=== PATIENT | female | born 1955 | race African-American/Black ===

== ENCOUNTER 2017-10-29 09:34 | Emergency (ER) | payer OTHER, MEDICAID ==
[~2017-10-29] VITALS: Ht 162.6 cm; Wt 100.0 kg
[~2017-10-29 09:34] MED LIST: ALBU4TAB6 PO; CARI350T27 PO; DIPH25CA83 PO; FAMO20TA8 PO; QUET25TA34 PO; TRIA1CAP6 PO; VERA240C2 PO; [UNRECOGNIZED DRUG - CODE] PO
[2017-10-29] MEDS ORDERED: KETOROLAC 60MG/2ML VIAL IM ONE (10:30)
[2017-10-29 10:40] VITALS: BP 195/91
== END 2017-10-29 10:47 | disposition home or self-care (01) ==
LOC: ER 09:34
DX: M25.561 Pain in right knee (principal); M79.603 Pain in arm, unspecified; I10 Essential (primary) hypertension; J45.909 Unspecified asthma, uncomplicated; Z87.891 Personal history of nicotine dependence; Z96.659 Presence of unspecified artificial knee joint
CPT/HCPCS: 96372; 99283; J1885

== ENCOUNTER 2017-12-22 10:15 | Emergency (ER) | payer OTHER, MEDICAID ==
[~2017-12-22] VITALS: Ht 162.6 cm; Wt 100.0 kg
[2017-12-22 16:00] VITALS: BP 141/75
[2017-12-22] MEDS ORDERED: KETOROLAC 60MG/2ML VIAL IM ONE (16:00)
== END 2017-12-22 16:24 | disposition home or self-care (01) ==
LOC: ER 10:21
DX: M54.30 Sciatica, unspecified side (principal); M54.9 Dorsalgia, unspecified; I10 Essential (primary) hypertension; J45.909 Unspecified asthma, uncomplicated; Z87.891 Personal history of nicotine dependence; Z96.659 Presence of unspecified artificial knee joint
CPT/HCPCS: 96372; 99283; J1885

== ENCOUNTER 2018-05-20 08:01 | Emergency (ER) | payer OTHER, MEDICAID ==
[~2018-05-20] VITALS: Ht 162.6 cm; Wt 101.0 kg
[2018-05-20] MEDS ORDERED: PREDNISONE 20MG TABLET PO STA (10:43)
[2018-05-20] MEDS ORDERED: ALBUTEROL (0.083%) 2.5MG/3ML NEB HHN STA (10:43)
[2018-05-20] MEDS ORDERED: IPRATROPIUM BROMIDE (0.02%) 0.5MG/2.5ML NEB HHN STA (10:43)
[2018-05-20 12:24] VITALS: BP 154/67
== END 2018-05-20 13:25 | disposition home or self-care (01) ==
LOC: ER 08:01
DX: S40.862A Insect bite (nonvenomous) of left upper arm, initial encounter (principal); J45.901 Unspecified asthma with (acute) exacerbation; I10 Essential (primary) hypertension; Z87.891 Personal history of nicotine dependence; W57.XXXA Bitten or stung by nonvenomous insect and other nonvenomous arthropods, initial encounter; Y93.89 Activity, other specified; Y92.89 Other specified places as the place of occurrence of the external cause; Y99.8 Other external cause status
CPT/HCPCS: 71045; 94640; 99283; J7512; J7611

== ENCOUNTER 2019-03-22 12:51 | Emergency (ER) | payer OTHER, MEDICAID ==
[~2019-03-22] VITALS: Ht 162.6 cm; Wt 97.0 kg
[~2019-03-22 12:51] MED LIST changes: +ALBU18HF2 IH; -ALBU4TAB6 PO; -CARI350T27 PO; +CYCL5TAB *; -DIPH25CA83 PO; +DIPH50CA38 *; +OMEP20CA10 PO; -QUET25TA34 PO; +SITA1TAB6 PO; +VERA180T8 PO; -VERA240C2 PO; -[UNRECOGNIZED DRUG - CODE] PO
[2019-03-22] MEDS ORDERED: KETOROLAC 60MG/2ML VIAL IM ONE (16:15)
[2019-03-22 17:02] VITALS: BP 154/79
== END 2019-03-22 17:05 | disposition home or self-care (01) ==
LOC: ER 14:45
DX: S39.012A Strain of muscle, fascia and tendon of lower back, initial encounter (principal); J45.909 Unspecified asthma, uncomplicated; E11.9 Type 2 diabetes mellitus without complications; I10 Essential (primary) hypertension; X50.0XXA Overexertion from strenuous movement or load, initial encounter; Y93.89 Activity, other specified; Y92.89 Other specified places as the place of occurrence of the external cause; Y99.8 Other external cause status; Z96.659 Presence of unspecified artificial knee joint; Z79.899 Other long term (current) drug therapy; Z98.890 Other specified postprocedural states
CPT/HCPCS: 96372; 99283; J1885

== ENCOUNTER 2019-04-17 09:54 | Emergency (ER) | payer OTHER, MEDICAID ==
[~2019-04-17] VITALS: Ht 162.6 cm; Wt 92.0 kg
[2019-04-17] MEDS ORDERED: ALBUTEROL (0.083%) 2.5MG/3ML NEB HHN STA (10:19)
[2019-04-17] MEDS ORDERED: IPRATROPIUM BROMIDE (0.02%) 0.5MG/2.5ML NEB HHN STA (10:19)
[2019-04-17 10:26] LABS: BASOPHILS % 1.1 % (0.0-2.0); EOSINOPHILS % 0.3 % (0.0-5.0); HEMATOCRIT. 33.6 % (36.0-48.0); HEMOGLOBIN. 10.8 g/dL (12.0-16.0); LYMPHOCYTES % 16.5 % (20.0-50.0); MEAN CORPUSCULAR HEMOGLOBIN 25.9 pg (28.0-32.0); MEAN CORPUSCULAR VOLUME 80.7 fL (81.0-99.0); MEAN PLATELET VOLUME 7.9 fl (7.4-10.4); MONOCYTES % 5.1 % (2.0-8.0); PLATELET 311 x1000/uL (130-400); RED BLOOD CELL COUNT 4.17 mill/uL (4.2-5.4); RED CELL DISTRIBUTION WIDTH 15.5 % (11.6-14.6)
[2019-04-17 10:33] LABS: CHLORIDE 110 mEq/L (98-107)
[2019-04-17 10:36] LABS: PARTIAL THROMBOPLASTIN TIME 32.2 sec (23.4-31.0); PROTHROMBIN TIME 10.3 sec (9.6-11.0)
[2019-04-17 14:15] VITALS: BP 162/68
== END 2019-04-17 14:15 | disposition home or self-care (01) ==
LOC: ER 10:27
DX: J45.901 Unspecified asthma with (acute) exacerbation (principal); E11.9 Type 2 diabetes mellitus without complications; I10 Essential (primary) hypertension; Z96.651 Presence of right artificial knee joint; Z79.899 Other long term (current) drug therapy; Z98.890 Other specified postprocedural states
CPT/HCPCS: 36415; 71045; 80053; 83880; 84484; 85025; 85610; 85730; 93005; 94640; 99284; J7611

== ENCOUNTER 2019-04-19 12:04 | Emergency (ER) | payer OTHER, MEDICAID ==
[~2019-04-19] VITALS: Ht 162.6 cm; Wt 95.0 kg
[2019-04-19] MEDS ORDERED: KETOROLAC 60MG/2ML VIAL IM ONE (15:15)
[2019-04-19 15:30] VITALS: BP 130/76
== END 2019-04-19 15:40 | disposition home or self-care (01) ==
LOC: ER 12:04
DX: M54.9 Dorsalgia, unspecified (principal); M79.18 Myalgia, other site; J45.909 Unspecified asthma, uncomplicated; I10 Essential (primary) hypertension
CPT/HCPCS: 96372; 99283; J1885

== ENCOUNTER 2019-09-16 10:52 | Emergency (ER) | payer OTHER, MEDICAID ==
[~2019-09-16] VITALS: Ht 165.1 cm; Wt 99.0 kg
[~2019-09-16 10:52] MED LIST changes: -OMEP20CA10 PO; +OMEP20CA5 PO; +VERA180T12 PO; -VERA180T8 PO
[2019-09-16] MEDS ORDERED: IPRATROPIUM BROMIDE (0.02%) 0.5MG/2.5ML NEB HHN STA (11:26)
[2019-09-16] MEDS ORDERED: PREDNISONE 20MG TABLET PO STA (11:26)
[2019-09-16] MEDS ORDERED: ALBUTEROL (0.083%) 2.5MG/3ML NEB HHN STA (11:26)
[2019-09-16 13:16] VITALS: BP 164/78
== END 2019-09-16 13:17 | disposition home or self-care (01) ==
LOC: ER 10:52
DX: J45.901 Unspecified asthma with (acute) exacerbation (principal); I10 Essential (primary) hypertension; E11.9 Type 2 diabetes mellitus without complications
CPT/HCPCS: 71045; 94644; 99285; J7512; J7611

== ENCOUNTER 2019-10-11 07:17 | Emergency (ER) | payer OTHER, MEDICAID ==
[~2019-10-11] VITALS: Ht 162.6 cm; Wt 99.0 kg
[2019-10-11 08:23] VITALS: BP 125/81
== END 2019-10-11 08:24 | disposition home or self-care (01) ==
LOC: ER 08:06
DX: M75.21 Bicipital tendinitis, right shoulder (principal); I10 Essential (primary) hypertension; E11.9 Type 2 diabetes mellitus without complications; J45.909 Unspecified asthma, uncomplicated; Z98.890 Other specified postprocedural states; Z79.899 Other long term (current) drug therapy
CPT/HCPCS: 99282

== ENCOUNTER 2019-12-28 08:34 | Emergency (ER) | payer MEDICAID, MEDICARE, OTHER ==
[~2019-12-28] VITALS: Ht 162.6 cm; Wt 97.0 kg
[~2019-12-28 08:34] MED LIST changes: +OMEP20CA14 PO; -OMEP20CA5 PO
[2019-12-28 08:50] VITALS: BP 101/62
[2019-12-28] MEDS ORDERED: ALBUTEROL (0.083%) 2.5MG/3ML NEB HHN STA (09:19)
[2019-12-28] MEDS ORDERED: PREDNISONE 20MG TABLET PO STA (09:19)
[2019-12-28] MEDS ORDERED: IPRATROPIUM BROMIDE (0.02%) 0.5MG/2.5ML NEB HHN STA (09:19)
== END 2019-12-28 10:52 | disposition home or self-care (01) ==
LOC: ER 08:34
DX: J45.901 Unspecified asthma with (acute) exacerbation (principal); E11.9 Type 2 diabetes mellitus without complications
CPT/HCPCS: 71045; 94640; 99283; J7512; J7611

== ENCOUNTER 2020-04-02 10:39 | Emergency (ER) | payer OTHER, MEDICAID ==
[~2020-04-02] VITALS: Ht 162.6 cm; Wt 95.0 kg
[2020-04-02] MEDS ORDERED: PREDNISONE 20MG TABLET PO ONE (11:15)
[2020-04-02] MEDS ORDERED: ALBUTEROL (0.083%) 2.5MG/3ML NEB HHN ONE (11:15)
[2020-04-02 11:51] VITALS: BP 168/74
== END 2020-04-02 11:51 | disposition home or self-care (01) ==
LOC: ER 11:13
DX: M25.521 Pain in right elbow (principal); J45.909 Unspecified asthma, uncomplicated; E11.9 Type 2 diabetes mellitus without complications; I10 Essential (primary) hypertension
CPT/HCPCS: 94640; 99283; J7512

== ENCOUNTER 2020-06-02 07:39 | Emergency (ER) | payer OTHER, MEDICAID ==
[~2020-06-02] VITALS: Ht 162.6 cm; Wt 100.0 kg
[2020-06-02 07:51] VITALS: BP 151/67
[2020-06-02] MEDS ORDERED: ALBUTEROL (0.083%) 2.5MG/3ML NEB HHN STA (08:00)
[2020-06-02] MEDS ORDERED: IPRATROPIUM BROMIDE (0.02%) 0.5MG/2.5ML NEB HHN STA (08:00)
[2020-06-02] MEDS ORDERED: PREDNISONE 20MG TABLET PO STA (08:00)
== END 2020-06-02 09:29 | disposition home or self-care (01) ==
LOC: ER 07:39
DX: J45.901 Unspecified asthma with (acute) exacerbation (principal); I10 Essential (primary) hypertension; E11.9 Type 2 diabetes mellitus without complications; J45.909 Unspecified asthma, uncomplicated
CPT/HCPCS: 94640; 99283; J7512

== ENCOUNTER 2021-02-03 14:31 | Emergency (ER) | payer OTHER, MEDICAID ==
[~2021-02-03] VITALS: Ht 162.6 cm; Wt 100.0 kg
[2021-02-03] MEDS ORDERED: ALBUTEROL (0.083%) 2.5MG/3ML NEB HHN STA (16:55)
[2021-02-03] MEDS ORDERED: IPRATROPIUM BROMIDE (0.02%) 0.5MG/2.5ML NEB HHN STA (16:55)
[2021-02-03] MEDS ORDERED: ALBU05 NEB (19:25)
[2021-02-03] MEDS ORDERED: P20 MT (19:28)
[2021-02-03 19:30] VITALS: BP 172/69
== END 2021-02-03 19:51 | disposition home or self-care (01) ==
LOC: ER 14:31
DX: J45.901 Unspecified asthma with (acute) exacerbation (principal); E11.9 Type 2 diabetes mellitus without complications; I10 Essential (primary) hypertension; Z98.890 Other specified postprocedural states; Z79.899 Other long term (current) drug therapy
CPT/HCPCS: 71045; 93005; 94640; 99283

== ENCOUNTER 2021-03-18 08:29 | Emergency (ER) | payer OTHER, MEDICAID ==
[~2021-03-18] VITALS: Ht 162.6 cm; Wt 102.0 kg
[~2021-03-18 08:29] MED LIST changes: +ALBU05 NEB; +P20 MT
[2021-03-18] MEDS ORDERED: METHYLPREDNISOLONE SOD SUCC 125 MG/2 ML VIAL IV STA (08:50)
[2021-03-18] MEDS ORDERED: IPRATROPIUM BROMIDE (0.02%) 0.5MG/2.5ML NEB HHN STA (08:50)
[2021-03-18] MEDS ORDERED: ALBUTEROL (0.083%) 2.5MG/3ML NEB HHN STA ×2 (08:50→11:07)
[2021-03-18 09:22] LABS: BASOPHILS % 0.8 % (0.0-2.0); EOSINOPHILS % 5.6 % (0.0-5.0); HEMATOCRIT. 34.2 % (36.0-48.0); HEMOGLOBIN. 10.8 g/dL (12.0-16.0); LYMPHOCYTES % 26.6 % (20.0-50.0); MEAN CORPUSCULAR HEMOGLOBIN 25.2 pg (28.0-32.0); MEAN CORPUSCULAR VOLUME 79.4 fL (81.0-99.0); MEAN PLATELET VOLUME 8.2 fl (7.4-10.4); MONOCYTES % 5.1 % (2.0-8.0); NEUTROPHILS % 61.9 % (40.0-76.0); PLATELET 293 x1000/uL (130-400); RED CELL DISTRIBUTION WIDTH 16.3 % (11.6-14.6)
[2021-03-18 09:29] LABS: CHLORIDE 107 mEq/L (98-107)
[2021-03-18] MEDS ORDERED: NITROGLYCERIN 0.4MG TABLET SL SL PRN (11:15)
[2021-03-18] MEDS ORDERED: ASPIRIN 81MG TABLET PO ONE (11:15)
[2021-03-18 13:09] VITALS: BP 148/79
[2021-03-18] MEDS ORDERED: P50 MT (13:10)
[2021-03-18] MEDS ORDERED: FLUT250D INH (13:14)
== END 2021-03-18 13:38 | disposition left against medical advice (07) ==
LOC: ER 08:36
DX: J45.901 Unspecified asthma with (acute) exacerbation (principal); R07.89 Other chest pain; E11.9 Type 2 diabetes mellitus without complications; I10 Essential (primary) hypertension; Z98.1 Arthrodesis status
CPT/HCPCS: 36415; 71045; 80053; 83880; 84484; 85025; 93005; 94640; 94644; 96374; 99285; J2930

== ENCOUNTER 2022-03-10 12:45 | Emergency (ER) | payer MEDICARE, MEDICAID ==
[~2022-03-10] VITALS: Ht 157.5 cm; Wt 77.0 kg
[~2022-03-10 12:45] MED LIST changes: +FLUT250D INH; +P50 MT; -VERA180T12 PO; +[UNRECOGNIZED DRUG - CODE] PO
[2022-03-10] MEDS ORDERED: IPRATROPIUM BROMIDE (0.02%) 0.5MG/2.5ML NEB HHN STA (13:16)
[2022-03-10] MEDS ORDERED: ALBUTEROL (0.083%) 2.5MG/3ML NEB HHN STA (13:16)
[2022-03-10] MEDS ORDERED: ASPIRIN 81MG TABLET PO ONE (14:00)
[2022-03-10 14:35] LABS: CHLORIDE 106 mEq/L (98-107)
[2022-03-10 14:56] LABS: BASOPHILS % 1.3 % (0.0-2.0); EOSINOPHILS % 1.5 % (0.0-5.0); HEMOGLOBIN. 11.2 g/dL (12.0-16.0); LYMPHOCYTES % 22.1 % (20.0-50.0); MEAN CORPUSCULAR HEMOGLOBIN 24.8 pg (28.0-32.0); MEAN CORPUSCULAR VOLUME 77.5 fL (81.0-99.0); MONOCYTES % 2.7 % (2.0-8.0); NEUTROPHILS % 72.4 % (40.0-76.0); PLATELET 361 x1000/uL (130-400); RED BLOOD CELL COUNT 4.52 mill/uL (4.2-5.4); RED CELL DISTRIBUTION WIDTH 17.7 % (11.6-14.6)
[2022-03-10 18:39] VITALS: BP 156/60
== END 2022-03-10 19:34 | disposition left against medical advice (07) ==
LOC: ER 13:04 → CANBEDREQ 20:19
DX: J45.901 Unspecified asthma with (acute) exacerbation (principal); R07.89 Other chest pain; M79.642 Pain in left hand; M79.641 Pain in right hand; E11.9 Type 2 diabetes mellitus without complications; I10 Essential (primary) hypertension; M19.90 Unspecified osteoarthritis, unspecified site
CPT/HCPCS: 36415; 71045; 80053; 83880; 84484; 85025; 93005; 94640; 99285

== ENCOUNTER 2022-06-27 10:02 | Emergency (ER) | payer MEDICARE, MEDICAID ==
[~2022-06-27] VITALS: Ht 162.6 cm; Wt 90.0 kg
[~2022-06-27 10:02] MED LIST changes: +VERA180T60 PO; -[UNRECOGNIZED DRUG - CODE] PO
[2022-06-27] MEDS ORDERED: PREDNISONE 20MG TABLET PO STA (10:20)
[2022-06-27] MEDS ORDERED: ALBUTEROL (0.083%) 2.5MG/3ML NEB HHN STA (10:20)
[2022-06-27] MEDS ORDERED: IPRATROPIUM BROMIDE (0.02%) 0.5MG/2.5ML NEB HHN STA (10:20)
[2022-06-27] MEDS ORDERED: ALBU05 NEB (11:19)
[2022-06-27] MEDS ORDERED: P20 MT (11:19)
[2022-06-27] MEDS ORDERED: BECL10.62 INH (11:19)
[2022-06-27] MEDS ORDERED: ALBU6.7H9 INH (11:19)
[2022-06-27 12:03] VITALS: BP 126/75
== END 2022-06-27 12:04 | disposition home or self-care (01) ==
LOC: ER 10:17
DX: J45.901 Unspecified asthma with (acute) exacerbation (principal); E11.9 Type 2 diabetes mellitus without complications; I10 Essential (primary) hypertension; Z79.899 Other long term (current) drug therapy; Z98.890 Other specified postprocedural states
CPT/HCPCS: 71045; 93005; 94644; 99285; J7512

== ENCOUNTER 2022-09-13 11:35 | Emergency (ER) | payer OTHER, MEDICAID ==
[~2022-09-13] VITALS: Ht 162.6 cm; Wt 91.0 kg
[~2022-09-13 11:35] MED LIST changes: +ALBU6.7H9 INH; +BECL10.62 INH
[2022-09-13] MEDS ORDERED: KETOROLAC 30MG/ML VIAL IM ONE (15:45)
[2022-09-13] MEDS ORDERED: CYCLOBENZAPRINE 10MG TABLET PO ONE (15:45)
[2022-09-13] MEDS ORDERED: LIDO700A30 TP (16:41)
[2022-09-13] MEDS ORDERED: NAPR-1176 MT (16:41)
[2022-09-13] MEDS ORDERED: HYDR-4001 MT (16:41)
[2022-09-13 16:58] LABS: CLARITY URINE CLEAR (CLEAR); COLOR URINE YELLOW (YELLOW); KETONES URINE NEGATIVE (NEGATIVE); LEUKOCYTE ESTERASE URINE 1+ (NEGATIVE); NITRITE URINE NEGATIVE (NEGATIVE); OCCULT BLOOD URINE NEGATIVE (NEGATIVE); PROTEIN URINE NEGATIVE (NEGATIVE); SPECIFIC GRAVITY URINE 1.021 (1.005-1.030); UROBILINOGEN URINE 0.2 E.U./dL (0.2-1.0)
[2022-09-13 17:13] VITALS: BP 139/97
[2022-09-14] MEDS ORDERED: CEPH500C2 MT (23:11)
== END 2022-09-13 17:14 | disposition home or self-care (01) ==
LOC: ER 11:35
DX: M54.50 Low back pain, unspecified (principal); E11.9 Type 2 diabetes mellitus without complications; I10 Essential (primary) hypertension; J45.909 Unspecified asthma, uncomplicated; Z96.659 Presence of unspecified artificial knee joint
CPT/HCPCS: 81003; 96372; 99283; J1885

== ENCOUNTER 2023-08-17 01:21 | Emergency (ER) | payer OTHER, MEDICAID ==
[~2023-08-17] VITALS: Ht 162.6 cm; Wt 92.0 kg
[~2023-08-17 01:21] MED LIST changes: +ALBU6.7H3 INH; -ALBU6.7H9 INH; +CEPH500C2 MT; +HYDR-4001 MT; +LIDO700A30 TP; +NAPR-1176 MT
[2023-08-17 01:57] VITALS: BP 184/71; PULSE 67; RESP 20; TEMP 98.2; O2SAT 97
[2023-08-17 03:13] LABS: CLARITY URINE CLOUDY (CLEAR); COLOR URINE YELLOW (YELLOW); GLUCOSE URINE NEGATIVE (NEGATIVE); KETONES URINE TRACE (NEGATIVE); LEUKOCYTE ESTERASE URINE 1+ (NEGATIVE); NITRITE URINE NEGATIVE (NEGATIVE); OCCULT BLOOD URINE NEGATIVE (NEGATIVE); PH URINE 5.5 (4.5-8.0); PROTEIN URINE NEGATIVE (NEGATIVE); SPECIFIC GRAVITY URINE 1.024 (1.005-1.030); UROBILINOGEN URINE 0.2 E.U./dL (0.2-1.0)
[2023-08-17 03:15] LABS: SQUAMOUS EPITHELIAL CELL URINE 3+ /lpf (RARE/1+); YEAST URINE NONE SEEN
[2023-08-17 03:34] LABS: BASOPHILS % 1.2 % (0.0-2.0); DIFFERENTIAL COMMENT 0; EOSINOPHILS % 4.3 % (0.0-5.0); HEMATOCRIT. 33.1 % (36.0-48.0); HEMOGLOBIN. 10.7 g/dL (12.0-16.0); LYMPHOCYTES % 36.1 % (20.0-50.0); MEAN CORPUSCULAR HEMOGLOBIN 25.7 pg (28.0-32.0); MEAN CORPUSCULAR HGB CONC 32.3 g/dL (31.0-37.0); MEAN CORPUSCULAR VOLUME 79.6 fL (81.0-99.0); MEAN PLATELET VOLUME 8.1 fl (7.4-10.4); MONOCYTES % 5.8 % (2.0-8.0); NEUTROPHILS % 52.6 % (40.0-76.0); PLATELET 335 x1000/uL (130-400); RED BLOOD CELL COUNT 4.15 mill/uL (4.2-5.4); RED CELL DISTRIBUTION WIDTH 15.7 % (11.6-14.6); WHITE BLOOD COUNT 8.8 x1000/uL (4.5-11.0)
[2023-08-17 03:45] LABS: CHLORIDE 107 mEq/L (98-107); INDEX HEMOLYSI 1 (1-3); INDEX ICTERIC 1 (1-4); INDEX LIPEMIC 1 (1-3); SODIUM 141 mEq/L (136-145)
[2023-08-17 03:52] LABS: ALANINE AMINOTRANSFERASE 22 IU/L (13-61); ALBUMIN 3.3 g/dL (3.4-5.0); ASPARTATE AMINOTRANSFERASE 18 IU/L (15-37); BILIRUBIN TOTAL 0.2 mg/dL (0.1-1.0); CALCIUM 8.9 mg/dL (8.5-10.1); CARBON DIOXIDE 31 mEq/L (21-32); CREATININE 0.9 mg/dL (0.6-1.3); GLUCOSE 89 mg/dL (70-105); PROTEIN TOTAL 7.8 g/dL (6.0-8.3); UREA NITROGEN BLOOD 18 mg/dL (7-21)
[2023-08-17] MEDS ORDERED: CEPH500C2 MT (04:09)
[2023-08-17] MEDS ORDERED: ACET-2708 MT (04:09)
[2023-08-17] MEDS ORDERED: CEPHALEXIN 250MG CAPSULE PO NR (04:15)
[2023-08-17 05:35] LABS: RBC URINE 0-2 /hpf (0-2)
[2023-08-17 05:36] LABS: BACTERIA URINE 1+
== END 2023-08-17 05:20 | disposition home or self-care (01) ==
LOC: ER 02:32
DX: N39.0 Urinary tract infection, site not specified (principal); E11.9 Type 2 diabetes mellitus without complications; I10 Essential (primary) hypertension; J45.909 Unspecified asthma, uncomplicated; Z00.00 Encounter for general adult medical examination without abnormal findings; Z79.899 Other long term (current) drug therapy
CPT/HCPCS: 36415; 80053; 81003; 85025; 99283

== ENCOUNTER 2023-10-15 07:05 | Emergency (ER) | payer OTHER, MEDICAID ==
[~2023-10-15] VITALS: Ht 162.6 cm; Wt 94.0 kg
[~2023-10-15 07:05] MED LIST changes: +ACET-2708 MT
[2023-10-15] MEDS ORDERED: IPRATROPIUM BROMIDE (0.02%) 0.5MG/2.5ML NEB HHN STA (07:39)
[2023-10-15] MEDS ORDERED: ALBUTEROL (0.083%) 2.5MG/3ML NEB HHN STA (07:39)
[2023-10-15] MEDS ORDERED: PREDNISONE 20MG TABLET PO STA (07:39)
[2023-10-15 07:56] LABS: BASOPHILS % 1.1 % (0.0-2.0); EOSINOPHILS % 1.2 % (0.0-5.0); HEMATOCRIT. 34.7 % (36.0-48.0); HEMOGLOBIN. 10.9 g/dL (12.0-16.0); LYMPHOCYTES % 34.9 % (20.0-50.0); MEAN CORPUSCULAR HEMOGLOBIN 25.4 pg (28.0-32.0); MEAN CORPUSCULAR HGB CONC 31.5 g/dL (31.0-37.0); MEAN CORPUSCULAR VOLUME 80.9 fL (81.0-99.0); MEAN PLATELET VOLUME 8.1 fl (7.4-10.4); MONOCYTES % 4.8 % (2.0-8.0); PLATELET 320 x1000/uL (130-400); RED BLOOD CELL COUNT 4.29 mill/uL (4.2-5.4); RED CELL DISTRIBUTION WIDTH 16.2 % (11.6-14.6); WHITE BLOOD COUNT 9.8 x1000/uL (4.5-11.0)
[2023-10-15] MEDS ORDERED: P20 PO (08:02)
[2023-10-15 08:08] LABS: PARTIAL THROMBOPLASTIN TIME 31.3 sec (23.4-31.0); PROTHROMBIN TIME 10.6 sec (9.6-11.0)
[2023-10-15 08:09] LABS: CHLORIDE 107 mEq/L (98-107); INDEX HEMOLYSI 1 (1-3); INDEX ICTERIC 1 (1-4); INDEX LIPEMIC 1 (1-3); POTASSIUM 3.6 mEq/L (3.5-5.1); SODIUM 140 mEq/L (136-145)
[2023-10-15 08:20] VITALS: PULSE 65; RESP 24; O2SAT 99
[2023-10-15 08:20] LABS: ALANINE AMINOTRANSFERASE 22 IU/L (13-61); ALBUMIN 3.2 g/dL (3.4-5.0); ASPARTATE AMINOTRANSFERASE 16 IU/L (15-37); BILIRUBIN TOTAL 0.2 mg/dL (0.1-1.0); CALCIUM 8.6 mg/dL (8.5-10.1); CARBON DIOXIDE 29 mEq/L (21-32); GLUCOSE 97 mg/dL (70-105); PROTEIN TOTAL 7.2 g/dL (6.0-8.3); TROPONIN I HIGH SENSITIVITY 26 ng/L (<54); UREA NITROGEN BLOOD 16 mg/dL (7-21)
[2023-10-15 09:31] VITALS: BP 135/88; PULSE 89; RESP 18; TEMP 98.2
== END 2023-10-15 09:32 | disposition home or self-care (01) ==
LOC: ER 07:05
DX: J45.901 Unspecified asthma with (acute) exacerbation (principal); E11.9 Type 2 diabetes mellitus without complications; I10 Essential (primary) hypertension; Z79.899 Other long term (current) drug therapy
CPT/HCPCS: 99285; 71045; 80053; 85025; 85610; 85730; 84484; 36415; 94640; 93005; J7512

== ENCOUNTER 2023-10-20 03:16 | Emergency (ER) | payer OTHER, MEDICAID ==
[~2023-10-20] VITALS: Ht 165.1 cm; Wt 94.5 kg
[~2023-10-20 03:16] MED LIST changes: +P20 PO
[2023-10-20 03:49] VITALS: BP 175/68; TEMP 98.2
[2023-10-20 04:00] LABS: BASOPHILS % 1.1 % (0.0-2.0); EOSINOPHILS % 0.6 % (0.0-5.0); HEMATOCRIT. 32.4 % (36.0-48.0); HEMOGLOBIN. 10.1 g/dL (12.0-16.0); LYMPHOCYTES % 30.6 % (20.0-50.0); MEAN CORPUSCULAR HEMOGLOBIN 25.9 pg (28.0-32.0); MEAN CORPUSCULAR HGB CONC 31.3 g/dL (31.0-37.0); MEAN CORPUSCULAR VOLUME 82.5 fL (81.0-99.0); MONOCYTES % 6.1 % (2.0-8.0); NEUTROPHILS % 61.6 % (40.0-76.0); PLATELET 313 x1000/uL (130-400); RED BLOOD CELL COUNT 3.92 mill/uL (4.2-5.4); RED CELL DISTRIBUTION WIDTH 16.5 % (11.6-14.6); WHITE BLOOD COUNT 13.7 x1000/uL (4.5-11.0)
[2023-10-20 04:10] LABS: CLARITY URINE CLEAR (CLEAR); COLOR URINE YELLOW (YELLOW); GLUCOSE URINE NEGATIVE (NEGATIVE); KETONES URINE NEGATIVE (NEGATIVE); LEUKOCYTE ESTERASE URINE 1+ (NEGATIVE); NITRITE URINE NEGATIVE (NEGATIVE); OCCULT BLOOD URINE NEGATIVE (NEGATIVE); PH URINE 6.5 (4.5-8.0); PROTEIN URINE NEGATIVE (NEGATIVE); SPECIFIC GRAVITY URINE 1.025 (1.005-1.030); UROBILINOGEN URINE 0.2 E.U./dL (0.2-1.0)
[2023-10-20 04:12] LABS: ALANINE AMINOTRANSFERASE 13 IU/L (10-49); ALBUMIN 3.7 g/dL (3.2-4.8); ASPARTATE AMINOTRANSFERASE 14 IU/L (<34); BILIRUBIN TOTAL 0.3 mg/dL (0.1-1.0); CARBON DIOXIDE 30 mEq/L (21-32); CHLORIDE 108 mEq/L (98-107); CREATININE 1.3 mg/dL (0.6-1.0); GLUCOSE 91 mg/dL (70-105); POTASSIUM 3.7 mEq/L (3.5-5.1); PROTEIN TOTAL 6.1 g/dL (6.0-8.3); SODIUM 144 mEq/L (136-145); UREA NITROGEN BLOOD 24 mg/dL (9-23)
[2023-10-20 04:12] LABS: RBC URINE 0-2 /hpf (0-2); YEAST URINE NONE SEEN
[2023-10-20 05:40] LABS: WBC URINE 0-2 /hpf (0-2)
[2023-10-20 05:42] LABS: BACTERIA URINE NONE SEEN; SQUAMOUS EPITHELIAL CELL URINE FEW /lpf (RARE/1+)
[2023-10-20 06:25] LABS: TROPONIN I HIGH SENSITIVITY 20 ng/L (3.0-34)
[2023-10-20] MEDS ORDERED: ALBUTEROL (0.083%) 2.5MG/3ML NEB HHN STA (06:45)
[2023-10-20] MEDS ORDERED: PREDNISONE 20MG TABLET PO STA (06:45)
[2023-10-20] MEDS ORDERED: IPRATROPIUM BROMIDE (0.02%) 0.5MG/2.5ML NEB HHN STA (06:45)
[2023-10-20] MEDS ORDERED: IPRATROPIUM BROMIDE (0.02%) 0.5MG/2.5ML NEB ONE (08:28)
[2023-10-20] MEDS ORDERED: ALBUTEROL (0.083%) 2.5MG/3ML NEB ONE (08:29)
[2023-10-20 08:30] VITALS: PULSE 60; RESP 24; O2SAT 99
[2023-10-20] MEDS ORDERED: P20 PO (10:32)
[2023-10-20] MEDS ORDERED: IOHEXOL-350 100 ML BOTTLE ONE (22:51)
[2023-10-21] MEDS ORDERED: PREDNISONE 20MG TABLET PO SCH (09:00)
== END 2023-10-20 11:47 | disposition home or self-care (01) ==
LOC: ER 03:16
DX: J45.901 Unspecified asthma with (acute) exacerbation (principal); R10.9 Unspecified abdominal pain; E11.9 Type 2 diabetes mellitus without complications; K21.9 Gastro-esophageal reflux disease without esophagitis; I10 Essential (primary) hypertension; Z98.890 Other specified postprocedural states
CPT/HCPCS: 99285; 74174; 71275; 71045; 80053; 81003; 85025; 84484; 36415; 94640; Q9967; J7512

== ENCOUNTER 2024-02-06 06:53 | Emergency (ER) | payer MEDICARE, MEDICAID ==
[~2024-02-06] VITALS: Ht 163.8 cm; Wt 95.0 kg
[2024-02-06 07:27] VITALS: O2SAT 96
[2024-02-06 08:19] LABS: CLARITY URINE CLEAR (CLEAR); COLOR URINE YELLOW (YELLOW); GLUCOSE URINE NEGATIVE (NEGATIVE); KETONES URINE NEGATIVE (NEGATIVE); LEUKOCYTE ESTERASE URINE NEGATIVE (NEGATIVE); NITRITE URINE NEGATIVE (NEGATIVE); OCCULT BLOOD URINE NEGATIVE (NEGATIVE); PROTEIN URINE NEGATIVE (NEGATIVE); SPECIFIC GRAVITY URINE 1.009 (1.005-1.030); UROBILINOGEN URINE 0.2 E.U./dL (0.2-1.0)
[2024-02-06 08:24] LABS: BASOPHILS % 1.5 % (0.0-2.0); HEMATOCRIT. 31.5 % (36.0-48.0); HEMOGLOBIN. 10.3 g/dL (12.0-16.0); LYMPHOCYTES % 36.1 % (20.0-50.0); MEAN CORPUSCULAR HEMOGLOBIN 26.4 pg (28.0-32.0); MEAN CORPUSCULAR HGB CONC 32.7 g/dL (31.0-37.0); MEAN CORPUSCULAR VOLUME 80.7 fL (81.0-99.0); MEAN PLATELET VOLUME 7.9 fl (7.4-10.4); MONOCYTES % 6.5 % (2.0-8.0); NEUTROPHILS % 52.9 % (40.0-76.0); PLATELET 302 x1000/uL (130-400); RED BLOOD CELL COUNT 3.91 mill/uL (4.2-5.4); RED CELL DISTRIBUTION WIDTH 15.5 % (11.6-14.6); WHITE BLOOD COUNT 7.5 x1000/uL (4.5-11.0)
[2024-02-06 08:46] LABS: ALANINE AMINOTRANSFERASE 28 IU/L (10-49); ALBUMIN 4.6 g/dL (3.2-4.8); ASPARTATE AMINOTRANSFERASE 38 IU/L (<34); BILIRUBIN TOTAL 0.2 mg/dL (0.1-1.0); CALCIUM 9.2 mg/dL (8.7-10.4); CARBON DIOXIDE 30 mEq/L (21-32); CHLORIDE 103 mEq/L (98-107); CREATININE 1.1 mg/dL (0.6-1.0); GLUCOSE 106 mg/dL (70-105); POTASSIUM 3.5 mEq/L (3.5-5.1); PROTEIN TOTAL 7.9 g/dL (6.0-8.3); SODIUM 138 mEq/L (136-145); UREA NITROGEN BLOOD 16 mg/dL (9-23)
[2024-02-06] MEDS: ONDANSETRON HCL 4MG/2ML INJ IV NR (09:01)
[2024-02-06] MEDS: MORPHINE SULFATE 2 MG/ML CPJ (NOT FOR IM USE) IV NR (09:01)
[2024-02-06] MEDS ORDERED: SODIUM CHLORIDE 0.9% 1,000 ML IV SCH (09:15)
[2024-02-06] MEDS ORDERED: TOPUD PO (11:05)
[2024-02-06 11:37] VITALS: BP 176/86; PULSE 70; RESP 17; TEMP 98.2
== END 2024-02-06 11:41 | disposition home or self-care (01) ==
LOC: ER 06:53
DX: R10.30 Lower abdominal pain, unspecified (principal); J45.909 Unspecified asthma, uncomplicated; K21.9 Gastro-esophageal reflux disease without esophagitis; I10 Essential (primary) hypertension; E11.9 Type 2 diabetes mellitus without complications; Z79.899 Other long term (current) drug therapy
CPT/HCPCS: 99285; 74176; 96374; 96375; 80053; 81003; 83605; 83690; 85025; 36415; J2405; J2270

== ENCOUNTER 2024-03-27 11:13 | Emergency (ER) | payer MEDICARE, MEDICAID ==
[~2024-03-27] VITALS: Ht 162.6 cm; Wt 93.0 kg
[~2024-03-27 11:13] MED LIST changes: +TOPUD PO
[2024-03-27 11:21] VITALS: O2SAT 99
[2024-03-27] MEDS: ACETAMINOPHEN 325MG TABLET PO ONE (12:06)
[2024-03-27 12:23] LABS: CLARITY URINE CLEAR (CLEAR); COLOR URINE YELLOW (YELLOW); GLUCOSE URINE NEGATIVE (NEGATIVE); KETONES URINE NEGATIVE (NEGATIVE); LEUKOCYTE ESTERASE URINE NEGATIVE (NEGATIVE); NITRITE URINE NEGATIVE (NEGATIVE); OCCULT BLOOD URINE NEGATIVE (NEGATIVE); PROTEIN URINE NEGATIVE (NEGATIVE); SPECIFIC GRAVITY URINE 1.028 (1.005-1.030)
[2024-03-27] MEDS ORDERED: CYCL5TAB MT (12:40)
[2024-03-27] MEDS ORDERED: LIDO700A15 TP (12:40)
[2024-03-27 13:00] VITALS: BP 128/79; PULSE 85; RESP 17; TEMP 98.5
== END 2024-03-27 13:05 | disposition home or self-care (01) ==
LOC: ER 11:13
DX: G89.29 Other chronic pain (principal); M54.50 Low back pain, unspecified; J45.909 Unspecified asthma, uncomplicated; E11.9 Type 2 diabetes mellitus without complications; K21.9 Gastro-esophageal reflux disease without esophagitis; I10 Essential (primary) hypertension; Z98.890 Other specified postprocedural states
CPT/HCPCS: 81003; 99283

== ENCOUNTER 2025-03-24 10:47 | Emergency (ER) | payer MEDICARE, MEDICAID ==
[~2025-03-24] VITALS: Ht 162.6 cm; Wt 88.0 kg
[~2025-03-24 10:47] MED LIST changes: -CYCL5TAB *; +CYCL5TAB3 *; +CYCL5TAB3 MT; +LIDO700A15 TP
[2025-03-24 11:25] VITALS: O2SAT 97
[2025-03-24 12:14] LABS: BASOPHILS % 1.3 % (0.0-2.0); EOSINOPHILS % 1.7 % (0.0-5.0); HEMATOCRIT. 33.6 % (36.0-48.0); HEMOGLOBIN. 10.7 g/dL (12.0-16.0); LYMPHOCYTES % 39.5 % (20.0-50.0); MEAN CORPUSCULAR HEMOGLOBIN 26.5 pg (28.0-32.0); MEAN CORPUSCULAR HGB CONC 31.9 g/dL (31.0-37.0); MEAN CORPUSCULAR VOLUME 82.9 fL (81.0-99.0); MEAN PLATELET VOLUME 7.9 fl (7.4-10.4); MONOCYTES % 5.4 % (2.0-8.0); NEUTROPHILS % 52.1 % (40.0-76.0); PLATELET 291 x1000/uL (130-400); RED BLOOD CELL COUNT 4.06 mill/uL (4.2-5.4); RED CELL DISTRIBUTION WIDTH 15.8 % (11.6-14.6); WHITE BLOOD COUNT 5.9 x1000/uL (4.5-11.0)
[2025-03-24 12:29] LABS: CHLORIDE 108 mEq/L (98-107); POTASSIUM 4.3 mEq/L (3.5-5.1); SODIUM 140 mEq/L (136-145)
[2025-03-24 12:30] LABS: CARBON DIOXIDE 27 mEq/L (21-32)
[2025-03-24 12:36] LABS: CREATININE 0.8 mg/dL (0.6-1.0); GLUCOSE 106 mg/dL (70-105); UREA NITROGEN BLOOD 13 mg/dL (9-23)
[2025-03-24 12:37] LABS: ALANINE AMINOTRANSFERASE 18 IU/L (10-49)
[2025-03-24 12:38] LABS: ALBUMIN 4.2 g/dL (3.2-4.8); ASPARTATE AMINOTRANSFERASE 19 IU/L (<34); BILIRUBIN DIRECT < 0.1 mg/dL (<=3.0); BILIRUBIN TOTAL 0.4 mg/dL (0.1-1.0); PROTEIN TOTAL 7.4 g/dL (6.0-8.3)
[2025-03-24 14:38] LABS: CLARITY URINE CLEAR (CLEAR); COLOR URINE YELLOW (YELLOW); GLUCOSE URINE NEGATIVE (NEGATIVE); KETONES URINE NEGATIVE (NEGATIVE); LEUKOCYTE ESTERASE URINE NEGATIVE (NEGATIVE); NITRITE URINE NEGATIVE (NEGATIVE); OCCULT BLOOD URINE NEGATIVE (NEGATIVE); PH URINE 5.5 (4.5-8.0); PROTEIN URINE NEGATIVE (NEGATIVE); SPECIFIC GRAVITY URINE 1.016 (1.005-1.030); UROBILINOGEN URINE 0.2 E.U./dL (0.2-1.0)
[2025-03-24 14:57] VITALS: BP 170/69; PULSE 72; RESP 18; TEMP 36.8; O2SAT 100
== END 2025-03-24 15:02 | disposition home or self-care (01) ==
LOC: ER 10:47
DX: R10.30 Lower abdominal pain, unspecified (principal); E11.9 Type 2 diabetes mellitus without complications; J45.909 Unspecified asthma, uncomplicated; I10 Essential (primary) hypertension; Z79.899 Other long term (current) drug therapy; Z98.890 Other specified postprocedural states
CPT/HCPCS: 36415; 74176; 80048; 80076; 81003; 85025; 86850; 86900; 93005; 99284

== ENCOUNTER 2025-05-31 10:00 | Emergency (ER) | payer MEDICARE, MEDICAID ==
[~2025-05-31] VITALS: Ht 160 cm; Wt 90.0 kg
[~2025-05-31 10:00] MED LIST changes: +LIDO-53 TP; -LIDO700A15 TP
[2025-05-31 10:20] VITALS: TEMP 36.7; O2SAT 98
[2025-05-31] MEDS ORDERED: PROP1DRO2 MT (10:44)
[2025-05-31 11:06] VITALS: BP 178/66; PULSE 68; RESP 16; O2SAT 99
== END 2025-05-31 11:07 | disposition home or self-care (01) ==
LOC: ER 10:00
DX: H57.89 Other specified disorders of eye and adnexa (principal); E11.9 Type 2 diabetes mellitus without complications; I10 Essential (primary) hypertension; J45.909 Unspecified asthma, uncomplicated; Z79.51 Long term (current) use of inhaled steroids; Z79.52 Long term (current) use of systemic steroids; Z79.84 Long term (current) use of oral hypoglycemic drugs; Z79.899 Other long term (current) drug therapy
CPT/HCPCS: 99282

== ENCOUNTER 2025-06-28 09:31 | Emergency (ER) | payer MEDICARE, MEDICAID ==
[~2025-06-28] VITALS: Ht 162.6 cm; Wt 85.0 kg
[~2025-06-28 09:31] MED LIST changes: +PROP1DRO2 MT
[2025-06-28 09:39] VITALS: O2SAT 98
[2025-06-28] MEDS: FAMOTIDINE 20MG TABLET PO ONE (10:05)
[2025-06-28] MEDS: DIPHENHYDRAMINE 25MG CAPSULE PO ONE (10:06)
[2025-06-28] MEDS: DEXAMETHASONE 4MG TABLET PO ONE (10:06)
[2025-06-28] MEDS ORDERED: EPIN0.3P3 IM (12:13)
[2025-06-28] MEDS ORDERED: DIPH25TA62 MT (12:13)
[2025-06-28 14:00] VITALS: BP 171/71; PULSE 68; RESP 14; TEMP 36.8; O2SAT 99
== END 2025-06-28 14:24 | disposition home or self-care (01) ==
LOC: ER 09:31
DX: R22.0 Localized swelling, mass and lump, head (principal); E11.9 Type 2 diabetes mellitus without complications; I10 Essential (primary) hypertension; J45.909 Unspecified asthma, uncomplicated; Z79.899 Other long term (current) drug therapy; Z79.84 Long term (current) use of oral hypoglycemic drugs; Z79.52 Long term (current) use of systemic steroids; Z79.51 Long term (current) use of inhaled steroids; Z98.890 Other specified postprocedural states
CPT/HCPCS: 99284; J8540; Q0163

== ENCOUNTER 2025-08-26 07:08 | Emergency (ER) | payer MEDICARE, MEDICAID ==
[~2025-08-26] VITALS: Ht 162.6 cm; Wt 88.2 kg
[~2025-08-26 07:08] MED LIST changes: +DIPH25TA62 MT; +EPIN0.3P3 IM
[2025-08-26 07:14] VITALS: O2SAT 98
[2025-08-26 07:53] VITALS: BP 152/64; PULSE 63; RESP 16; TEMP 36.8; O2SAT 98
[2025-08-26] MEDS: IBUPROFEN 400MG TABLET PO ONE (07:53)
[2025-08-26] MEDS ORDERED: IBUP-2028 PO (08:12)
== END 2025-08-26 08:23 | disposition home or self-care (01) ==
LOC: ER 07:08
DX: M25.511 Pain in right shoulder (principal); E11.9 Type 2 diabetes mellitus without complications; I10 Essential (primary) hypertension; J45.909 Unspecified asthma, uncomplicated; Z79.899 Other long term (current) drug therapy
CPT/HCPCS: 73030; 99283; A4565

== ENCOUNTER 2025-09-04 05:24 | Emergency (ER) | payer MEDICARE, MEDICAID ==
[~2025-09-04] VITALS: Ht 162.6 cm; Wt 88.0 kg
[~2025-09-04 05:24] MED LIST changes: +IBUP-2028 PO
[2025-09-04 05:43] VITALS: O2SAT 99
[2025-09-04 06:43] LABS: BASOPHILS % 0.7 % (0.0-2.0); EOSINOPHILS % 4.7 % (0.0-5.0); HEMATOCRIT. 36.9 % (36.0-48.0); HEMOGLOBIN. 11.7 g/dL (12.0-16.0); LYMPHOCYTES % 38.3 % (20.0-50.0); MEAN PLATELET VOLUME 7.5 fl (7.4-10.4); MONOCYTES % 6.3 % (2.0-8.0); NEUTROPHILS % 50.0 % (40.0-76.0); PLATELET 337 x1000/uL (130-400); RED BLOOD CELL COUNT 4.46 mill/uL (4.2-5.4); RED CELL DISTRIBUTION WIDTH 14.5 % (11.6-14.6)
[2025-09-04 07:03] LABS: CREATININE 0.9 mg/dL (0.6-1.0); UREA NITROGEN BLOOD 10 mg/dL (9-23)
[2025-09-04 08:06] LABS: CLARITY URINE CLEAR (CLEAR); COLOR URINE YELLOW (YELLOW); GLUCOSE URINE NEGATIVE (NEGATIVE); KETONES URINE TRACE (NEGATIVE); LEUKOCYTE ESTERASE URINE NEGATIVE (NEGATIVE); NITRITE URINE NEGATIVE (NEGATIVE); OCCULT BLOOD URINE NEGATIVE (NEGATIVE); PH URINE 5.5 (4.5-8.0); PROTEIN URINE NEGATIVE (NEGATIVE); SPECIFIC GRAVITY URINE 1.024 (1.005-1.030); UROBILINOGEN URINE 0.2 E.U./dL (0.2-1.0)
[2025-09-04] MEDS: KETOROLAC 30MG/ML VIAL IM SCH (08:53)
[2025-09-04 09:06] VITALS: BP 144/70; PULSE 74; RESP 18; TEMP 36.8; O2SAT 99
== END 2025-09-04 09:06 | disposition home or self-care (01) ==
LOC: ER 05:24
DX: R10.9 Unspecified abdominal pain (principal); E11.9 Type 2 diabetes mellitus without complications; I10 Essential (primary) hypertension; J45.909 Unspecified asthma, uncomplicated; Z79.899 Other long term (current) drug therapy; Z96.659 Presence of unspecified artificial knee joint
CPT/HCPCS: 99284; 80048; 81003; 85025; 36415; 93005; J1885

== ENCOUNTER 2025-09-24 07:24 | Emergency (ER) | payer MEDICARE, MEDICAID ==
[~2025-09-24] VITALS: Ht 162.6 cm; Wt 91.0 kg
[2025-09-24 07:34] VITALS: O2SAT 99
[2025-09-24] MEDS: IBUPROFEN 600MG TABLET PO ONE (08:32)
[2025-09-24] MEDS: MAGNESIUM/ALUMINUM HYDROXIDE/SIMETHICONE 30ML UDC PO ONE (08:33)
[2025-09-24] MEDS: ACETAMINOPHEN 325MG TABLET PO ONE (08:33)
[2025-09-24 09:13] LABS: BASOPHILS % 1.2 % (0.0-2.0); EOSINOPHILS % 3.1 % (0.0-5.0); HEMATOCRIT. 35.9 % (36.0-48.0); HEMOGLOBIN. 11.3 g/dL (12.0-16.0); LYMPHOCYTES % 34.4 % (20.0-50.0); MEAN PLATELET VOLUME 7.9 fl (7.4-10.4); MONOCYTES % 5.7 % (2.0-8.0); NEUTROPHILS % 55.6 % (40.0-76.0); PLATELET 259 x1000/uL (130-400); RED BLOOD CELL COUNT 4.33 mill/uL (4.2-5.4); RED CELL DISTRIBUTION WIDTH 14.2 % (11.6-14.6)
[2025-09-24 09:25] LABS: CREATININE 1.0 mg/dL (0.6-1.0); UREA NITROGEN BLOOD 12 mg/dL (9-23)
[2025-09-24 09:27] LABS: ASPARTATE AMINOTRANSFERASE 17 IU/L (<34); BILIRUBIN DIRECT < 0.1 mg/dL (<=3.0)
[2025-09-24 09:28] LABS: BILIRUBIN TOTAL 0.3 mg/dL (0.1-1.0); PROTEIN TOTAL 7.5 g/dL (6.0-8.3)
[2025-09-24 09:35] LABS: TROPONIN I HIGH SENSITIVITY 7 ng/L (3.0-34)
[2025-09-24] MEDS ORDERED: PROT40 MT (10:48)
[2025-09-24 10:51] VITALS: BP 171/77; PULSE 80; RESP 15; TEMP 36.7; O2SAT 99
== END 2025-09-24 10:52 | disposition home or self-care (01) ==
LOC: ER 07:24
DX: R07.89 Other chest pain (principal); M17.11 Unilateral primary osteoarthritis, right knee; J45.909 Unspecified asthma, uncomplicated; E11.9 Type 2 diabetes mellitus without complications; I10 Essential (primary) hypertension; M25.561 Pain in right knee; Z79.1 Long term (current) use of non-steroidal anti-inflammatories (NSAID); Z96.651 Presence of right artificial knee joint; Z79.899 Other long term (current) drug therapy; Z79.84 Long term (current) use of oral hypoglycemic drugs; Z79.52 Long term (current) use of systemic steroids; Z79.51 Long term (current) use of inhaled steroids
CPT/HCPCS: 36415; 71045; 73560; 80048; 80076; 84484; 85025; 93005; 99285